=== PATIENT | male | born 1945 | race Caucasian/White ===

== ENCOUNTER 2016-10-19 12:20 | Emergency (ER) | payer OTHER ==
[2016-10-19 13:21] VITALS: BP 150/89; PULSE 75; TEMP 97.9; O2SAT 89
[2016-10-19] MEDS ORDERED: IPRATROPIUM/ALBUTEROL 3 ML DEYVIAL ONE (14:06)
--- NOTE | 2016-10-19 14:10 | UCPHY ---
H & P Time Seen by Provider: 10/19/16 13:28 Patient Type: Established HPI/ROS: This patient presents with a chief complaint of cough, wheezing and some dyspnea on exertion which started approximately 1 month ago. He was seen by his primary care physician and placed on doxycycline, Qvar, prednisone and a Ventolin inhaler. While taking the prednisone he felt improved but symptoms have worsened in the past 2-3 days. He denies fever, chest pain, sore throat or ear pain. He does have some nasal congestion. 1 month ago when he had the chest x-ray also had x-rays of his facial sinuses which showed questionable maxillary sinusitis but the chest x-ray was unremarkable. He has had problem with bronchospasm several times in the past but has not been diagnosed with asthma. REVIEW OF SYSTEMS: Constitutional: No fever Eyes: No complaints ENT: Nasal congestion, denies sore throat denies ear pain Respiratory: Persistent productive cough, wheezing, dyspnea on exertion Cardiac: No chest pain Gastrointestinal: Not addressed Genitourinary: Not addressed Musculoskeletal: No myalgias Skin: No rash Neurological: No motor or sensory dysfunction. Smoking Status: Former smoker Physical Exam: GENERAL: Well-appearing, well-nourished and in no acute distress. HEAD: Atraumatic, normocephalic. EYES: sclera anicteric, conjunctiva are normal. ENT: TMs normal, nares patent, oropharynx clear without exudates. Moist mucous membranes. NECK: Normal range of motion, supple without lymphadenopathy or JVD. LUNGS: Wheezes are prominent and there is prolongation of the expiratory phase of respiration. HEART: Regular rate and rhythm EXTREMITIES: Normal range of motion, no pitting or edema. No clubbing or cyanosis. NEUROLOGICAL: Cranial nerves II through XII grossly intact. Normal speech, normal gait. PSYCH: Normal mood, normal affect. SKIN: Warm, dry, normal turgor, no visible rashes or lesions. Constitutional: Initial Vital Signs Temperature (C) 36.6 C 10/19/16 13:14 Heart Rate 75 10/19/16 13:14 Blood Pressure 150/89 H 10/19/16 13:14 O2 Sat (%) 89 L 10/19/16 13:14 O2 Delivery Mode Room Air Allergies/Adverse Reactions: No Known Allergies Allergy (Verified 10/02/15 07:27) Home Medications: Medication Instructions Recorded Albuterol 06/30/15 Albuterol Hfa Anes Only [Proair 2 puffs IH Q4 PRN #1 mdi 10/02/15 Hfa Icu (*)] Albuterol [Proventil Neb] 3 ml IH Q2 PRN #25 deyvial 10/02/15 Azithromycin [Zithromax] 250 mg PO DAILY #6 tab 10/02/15 Ipratropium [Atrovent Neb] 0.5 mg IH Q6 PRN #25 deyvial 10/02/15 predniSONE 60 mg PO DAILY #13 tab 10/02/15 AZITHROMYCIN [Z-PACK] 250 mg PO DAILY #1 packet 10/19/16 predniSONE 20 mg PO DAILY #14 tab 10/19/16 Medical Decision Making ED Course/Re-evaluation: The patient was then given a DuoNeb and 60 mg of prednisone. Re-examination reveals free ear air movement but wheezing persists. Subjectively says he feels much better and is able to cough more productively. 14:35 the patient was given a 2nd DuoNeb after which he noted additional improvement. Re-examination revealed free air movement but wheezes persisted. I felt this patient had made enough improvement and that it was safe for him to go home and continue his outpatient regimen with the additional prednisone. - Data Points Medications Given: Discontinued Medications Albuterol/Ipratropium (Duoneb) 3 ml IH EDNOW ONE Stop: 10/19/16 14:24 Last Admin: 10/19/16 14:33 Dose: 3 ml Albuterol/Ipratropium (Duoneb) 3 ml IH EDNOW ONE Stop: 10/19/16 14:32 Last Admin: 10/19/16 14:39 Dose: 3 ml Prednisone (Prednisone) 60 mg PO EDNOW ONE Stop: 10/19/16 14:14 Last Admin: 10/19/16 14:34 Dose: 60 mg Departure - Departure Disposition: Home, Routine, Self-Care Clinical Impression: Acute bronchitis with bronchospasm Condition: Good Instructions: Bronchospasm (ED), Acute Bronchitis (ED) Additional Instructions: You should plan to follow up with Dr. Stewart if your symptoms do not worsen within the next for 5 days. If at any time you feel that your symptoms are worsening you should be seen sooner. Of particular concern is worsening shortness of breath Continue to use her nebulizer as you have been doing. it is okay to use your rescue inhaler every 2 hours if needed but if you need more frequently should be re-evaluated. Referrals: Michele Stewart MD [Primary Care Provider] - As per Instructions Prescriptions: AZITHROMYCIN [Z-PACK] 250 mg PO DAILY #1 packet predniSONE 20 mg PO DAILY #14 tab - PQRS PQRS Measurement: Not applicable
[2016-10-19] MEDS ORDERED: predniSONE 20 MG TAB PO ONE (14:13)
[2016-10-19] MEDS ORDERED: IPRATROPIUM/ALBUTEROL 3 ML DEYVIAL IH ONE ×2 (14:23→14:31)
== END 2016-10-19 15:07 | disposition home or self-care (01) ==
LOC: CED 12:20
DX: J40 Bronchitis, not specified as acute or chronic (principal); Z87.891 Personal history of nicotine dependence
CPT/HCPCS: 99214-PO; G0463-PO

== ENCOUNTER → 2017-02-26 | Outpatient (CLI) | payer OTHER | LOC: CIMAGING 13:14 | PROVIDERS: ATTEND Internal Medicine | DX: R51 Headache (principal); M26.69 Other specified disorders of temporomandibular joint | CPT/HCPCS: 70450-PO ==

== ENCOUNTER → 2017-02-27 | Outpatient (CLI) | payer OTHER ==
[~2017-02-27] MED LIST: GADOBUTROL 10 ML VIAL IVP ONE
== END ==
LOC: FIMAGING 16:35
PROVIDERS: ATTEND Internal Medicine
DX: R51 Headache (principal); I77.9 Disorder of arteries and arterioles, unspecified
CPT/HCPCS: 70553; A9585

== ENCOUNTER → 2017-09-03 | Outpatient (CLI) | payer OTHER | LOC: CIMAGING 09:05 | PROVIDERS: ATTEND Internal Medicine | DX: J44.1 Chronic obstructive pulmonary disease with (acute) exacerbation (principal) | CPT/HCPCS: 71020; G0463; 87804-QW-PO ==

== ENCOUNTER → 2017-09-07 | Outpatient (CLI) | payer OTHER | LOC: CIMAGING 11:26 | PROVIDERS: ATTEND Internal Medicine | DX: R06.00 Dyspnea, unspecified (principal); R05 Cough | CPT/HCPCS: 71020; G0463 ==

== ENCOUNTER 2017-11-25 17:08 | Emergency (ER) | payer OTHER ==
[2017-11-25 17:18] VITALS: RESP 18; TEMP 100.2
[2017-11-25] MEDS ORDERED: ACETAMINOPHEN 500 MG TAB PO ONE (17:58)
[2017-11-25 17:59] LABS: PLATELET COUNT 227 10^3/uL (150-400)
[2017-11-25] MEDS ORDERED: IPRATROPIUM/ALBUTEROL 3 ML DEYVIAL IH ONE (17:59)
--- NOTE | 2017-11-25 18:06 | EDPHY ---
H & P Stated Complaint: fever, cough 24 hours Time Seen by Provider: 11/25/17 17:34 HPI/ROS: CHIEF COMPLAINT: Cough and malaise History by patient HISTORY OF PRESENT ILLNESS: 72-year-old male with a history of COPD and temporal arteritis for which he is currently on a prednisone taper presents complaining of increasing fatigue, generalized weakness and malaise and now cough productive of some yellow sputum over the past 24 hr. 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 There has been no nausea or vomiting or diarrhea. There has been no rash. He denies any runny nose or sore throat. His recently got out of the hospital with pneumonia. He did get a flu shot this year. He has not smoked in 30 years. REVIEW OF SYSTEMS: As in HPI, and all other systems reviewed and are negative Source: Patient - Personal History Tetanus Vaccine Date: WITHIN 10 YRS - Medical/Surgical History Hx Asthma: No Hx Chronic Respiratory Disease: No Hx Diabetes: No Hx Cardiac Disease: No Hx Renal Disease: No Hx Cirrhosis: No Hx Alcoholism: No Hx HIV/AIDS: No Hx Splenectomy or Spleen Trauma: No Other PMH: pneumonia,REMISSION PROSTATE CA. HTN, - Social History Smoking Status: Former smoker - Physical Exam Exam: General Appearance: Alert, flushed, nontoxic. Head: normocephalic, atraumatic Eyes: Pupils equal and round, reactive to light, no pallor or injection. Extraocular movements intact Mouth: Mucous membranes moist. Oropharynx clear Neck: No cervical or submandibular adenopathy, no meningismus Respiratory: Normal, effort, lungs are clear to auscultation. Diffuse inspiratory and expiratory wheezes Cardiovascular: Regular rate and rhythm. S1, S2, no murmurs, gallops or rubs appreciated Gastrointestinal: Abdomen is soft and nontender, no masses, bowel sounds normal. Back: No CVA tenderness, no bony tenderness Neurological: Awake, alert and oriented x 3, no pronator drift, normal gait, no pronator drift Skin: Warm and dry, no rashes. Musculoskeletal: No deformities or tenderness. Full range of motion Extremities: no edema, no tenderness, DP2+ bilat Psychiatric: Patient has normal affect, there is no agitation. Constitutional: Initial Vital Signs Temperature (C) 37.9 C 02/11/18 17:14 Heart Rate 81 11/25/17 17:14 Respiratory Rate 18 11/25/17 17:14 Blood Pressure 175/100 H 11/25/17 17:14 O2 Sat (%) 93 11/25/17 17:14 O2 Delivery Mode Room Air Allergies/Adverse Reactions: No Known Allergies Allergy (Verified 11/25/17 17:19) Home Medications: Medication Instructions Recorded Albuterol 06/30/15 Albuterol Hfa Anes Only [Proair 2 puffs IH Q4 PRN #1 mdi 10/02/15 Hfa Icu (*)] Albuterol [Proventil Neb] 3 ml IH Q2 PRN #25 deyvial 10/02/15 Ipratropium [Atrovent Neb] 0.5 mg IH Q6 PRN #25 deyvial 10/02/15 predniSONE 60 mg PO DAILY #13 tab 10/02/15 predniSONE 20 mg PO DAILY #14 tab 10/19/16 Azithromycin 250 mg PO DAILY #4 tablet 11/25/17 Medical Decision Making - Diagnostics Imaging Results: Imaging Impressions Chest X-Ray 11/25/17 17:42 Impression: Mild bronchitis. Otherwise, no evidence for acute cardiopulmonary abnormality. 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 Chest x-ray shows no evidence of pneumonia. Labs are unremarkable except for slightly low sodium just below the lower limit of normal. He had a normal lactate. Blood cultures were sent. Patient was given a DuoNeb and on re-evaluation his lungs were clear. Patient was tolerating p. o. and there is no evidence of hypoxia or respiratory compromise and he was hemodynamically stable. Therefore we will treat him for bronchitis but because of his fever we will start him on azithromycin. He was given his 1st dose here in the ED. We discussed return precautions and I am recommending close follow-up with primary care physician in a few days. Patient understands and is agreeable to this plan. - Data Points Laboratory Results: Laboratory Results 11/25/17 17:50 11/25/17 17:50 02/11/18 02/11/18 02/11/18 17:50 17:50 17:50 WBC 6.12 10^3/uL 10^3/uL (3.80-9.50) RBC 4.74 10^6/uL 10^6/uL (4.40-6.38) Hgb 15.8 g/dL g/dL (13.7-17.5) Hct 43.6 % % (40.0-51.0) MCV 92.0 fL fL (81.5-99.8) MCH 33.3 pg pg (27.9-34.1) MCHC 36.2 g/dL g/dL (32.4-36.7) RDW 12.3 % % (11.5-15.2) Plt Count 227 10^3/uL 10^3/uL (150-400) MPV 8.3 fL L fL (8.7-11.7) Neut % (Auto) 65.1 % % (39.3-74.2) Lymph % (Auto) 14.9 % L % (15.0-45.0) Shannon % (Auto) 18.8 % H % (4.5-13.0) Eos % (Auto) 0.2 % L % (0.6-7.6) Baso % (Auto) 0.5 % % (0.3-1.7) Nucleat RBC Rel Count 0.0 % % (0.0-0.2) Absolute Neuts (auto) 3.99 10^3/uL 10^3/uL (1.70-6.50) Absolute Lymphs (auto) 0.91 10^3/uL L 10^3/uL (1.00-3.00) Absolute Monos (auto) 1.15 10^3/uL H 10^3/uL (0.30-0.80) Absolute Eos (auto) 0.01 10^3/uL L 10^3/uL (0.03-0.40) Absolute Basos (auto) 0.03 10^3/uL 10^3/uL (0.02-0.10) Absolute Nucleated RBC 0.00 10^3/uL 10^3/uL (0-0.01) Immature Gran % 0.5 % % (0.0-1.1) Immature Gran # 0.03 10^3/uL 10^3/uL (0.00-0.10) VBG Lactic Acid 1.2 mmol/L mmol/L (0.7-2.1) Sodium 132 mEq/L L mEq/L (135-145) Potassium 3.8 mEq/L mEq/L (3.5-5.2) Chloride 93 mEq/L L mEq/L (97-110) Carbon Dioxide 24 mEq/l mEq/l (22-31) Anion Gap 15 mEq/L mEq/L (8-16) BUN 14 mg/dL mg/dL (7-23) Creatinine 0.8 mg/dL mg/dL (0.7-1.3) Estimated GFR > 60 Glucose 90 mg/dL mg/dL (70-100) Calcium 9.1 mg/dL mg/dL (8.5-10.4) Influenza A,B Rapid 11/25/17 17:25 WBC RBC Hgb Hct MCV MCH MCHC RDW Plt Count MPV Neut % (Auto) Lymph % (Auto) Shannon % (Auto) Eos % (Auto) Baso % (Auto) Nucleat RBC Rel Count Absolute Neuts (auto) Absolute Lymphs (auto) Absolute Monos (auto) Absolute Eos (auto) Absolute Basos (auto) Absolute Nucleated RBC Immature Gran % Immature Gran # VBG Lactic Acid Sodium Potassium Chloride Carbon Dioxide Anion Gap BUN Creatinine Estimated GFR Glucose Calcium Influenza A,B Rapid NEGATIVE FOR FLU (NEGATIVE) Medications Given: Discontinued Medications Acetaminophen (Tylenol) 1,000 mg PO EDNOW ONE Stop: 11/25/17 17:59 Last Admin: 11/25/17 18:07 Dose: 1,000 mg Albuterol/Ipratropium (Duoneb) 3 ml IH EDNOW ONE Stop: 11/25/17 18:00 Last Admin: 11/25/17 18:07 Dose: 3 ml Azithromycin (Zithromax) 500 mg PO EDNOW ONE PRN Reason: Protocol Stop: 11/25/17 19:00 Last Admin: 11/25/17 19:24 Dose: 500 mg Departure - Departure Disposition: Home, Routine, Self-Care Clinical Impression: Chronic obstructive pulmonary disease with acute exacerbation Condition: Fair Instructions: Acute Bronchitis (ED), COPD (Chronic Obstructive Pulmonary Disease) (ED) Additional Instructions: You were seen by Dr. Charisse Ordonez today. Take azithromycin as prescribed starting tomorrow evening. Continue your prednisone as previously prescribed. Use your nebulizer treatments as needed at home. Return immediately he develop any worse trouble breathing or other worsening. Please follow up with the primary care physician for recheck in 2-3 days. Return for any worsening or new concerns. Referrals: Michele Stewart MD [Primary Care Provider] - As per Instructions Prescriptions: Azithromycin 250 mg PO DAILY #4 tablet
[2017-11-25] MEDS ORDERED: AZITHROMYCIN 250 MG TAB PO ONE (18:59)
[2017-11-25 19:22] VITALS: BP 126/64; PULSE 76; O2SAT 92
== END 2017-11-25 19:40 | disposition home or self-care (01) ==
LOC: CED 17:08
DX: J44.1 Chronic obstructive pulmonary disease with (acute) exacerbation (principal); I10 Essential (primary) hypertension; Z85.46 Personal history of malignant neoplasm of prostate; Z87.891 Personal history of nicotine dependence
CPT/HCPCS: 71046-PO; 80048-PO; 83605-PO; 85025-PO; 87400-PO

== ENCOUNTER → 2019-03-20 | Outpatient (CLI) | payer OTHER | LOC: CIMAGING 09:43 ==